=== PATIENT | male | born 2000 | race Caucasian/White ===

== ENCOUNTER 2020-05-02 06:55 | Emergency (ER) | payer OTHER ==
[2020-05-02] MEDS ORDERED: HYDROmorphone 0.5 MG/0.5 ML SYRINGE IVP STA (07:34)
[2020-05-02] MEDS ORDERED: SODIUM CHLORIDE 0.9% 500 ML 500 ML IV STA (07:34)
[2020-05-02 07:58] LABS: Basophils # (A) 0.1 k/uL (0-0.2); Basophils % (A) 1 %; Eosinophils # (A) 0.2 k/uL (0-0.7); Eosinophils % (A) 2 %; HCT 45.4 % (39.0-53.0); HGB 15.4 gm/dL (13.0-17.5); Lymphocytes # (A) 1.3 k/uL (1.0-4.8); Lymphocytes % (A) 11 %; MCH 30.3 pg (25.0-35.0); MCHC 33.8 g/dL (31.0-37.0); MCV 89.6 fL (80.0-100.0); Mean Platelet Volume 7.3; Monocytes # (A) 0.9 k/uL (0-1.0); Monocytes % (A) 7 %; Neutrophils # (A) 9.7 k/uL (1.3-7.7); Neutrophils % (A) 79 %; Platelet Count 250 k/uL (150-450); RBC 5.07 m/uL (4.30-5.90); RDW 13.3 % (11.5-15.5); WBC 12.3 k/uL (3.8-10.6)
--- NOTE | 2020-05-02 07:58 | ED ---
General Adult HPI - General Chief complaint: Abdominal Pain Stated complaint: LT flank pain Time Seen by Provider: 05/02/20 07:00 Source: patient, RN notes reviewed, old records reviewed Mode of arrival: ambulatory Limitations: no limitations - History of Present Illness Initial comments: This is a 20-year-old male who presents emergency Department complaining of left upper quadrant abdominal pain. Patient states started 3 days ago and got progressively worse per patient states it hurts so bad now to move or take a deep breath that it almost makes me I'll allow. Patient denies any nausea vomiting diarrhea. Patient denies any similar symptoms in the past per patient denies any trauma. Patient denies any fevers or chills per patient denies any chest pain difficulty breathing shortness of breath. Patient denies any back pain. Patient denies any dysuria hematuria urinary frequency. - Related Data Home Medications Medication Instructions Recorded Confirmed Acetaminophen Tab [Tylenol Tab] 1,000 mg PO Q6HR PRN 05/02/20 05/02/20 Fexofenadine HCl [Nimisha Allergy] 180 mg PO DAILY 05/02/20 05/02/20 Previous Rx's Medication Instructions Recorded Azithromycin [Zithromax Tri-Mustapha] 500 mg PO DAILY #3 tab 05/02/20 Ibuprofen [Motrin] 600 mg PO Q6HR PRN #20 tab 05/02/20 Allergies Allergy/AdvReac Type Severity Reaction Status Date / Time No Known Allergies Allergy Verified 05/02/20 08:51 Review of Systems ROS Statement: Those systems with pertinent positive or pertinent negative responses have been documented in the HPI. ROS Other: All systems not noted in ROS Statement are negative. Past Medical History Past Medical History: No Reported History History of Any Multi-Drug Resistant Organisms: None Reported Past Surgical History: No Surgical Hx Reported Past Psychological History: No Psychological Hx Reported Smoking Status: Current every day smoker Past Alcohol Use History: None Reported Past Drug Use History: Marijuana General Exam - General Exam Comments Initial Comments: GENERAL: Patient is well-developed and well-nourished. Patient is nontoxic and well- hydrated and is in mild distress. ENT: Neck is soft and supple. No significant lymphadenopathy is noted. Oropharynx is clear. Moist mucous membranes. Neck has full range of motion without eliciting any pain. EYES: The sclera were anicteric and conjunctiva were pink and moist. Extraocular movements were intact and pupils were equal round and reactive to light. Eyelids were unremarkable. PULMONARY: Unlabored respirations. Good breath sounds bilaterally. No audible rales rhonchi or wheezing was noted. CARDIOVASCULAR: There is a regular rate and rhythm without any murmurs gallops or rubs. ABDOMEN: Patient left sided abdominal pain on palpation. Patient has some guarding SKIN: Skin is clear with no lesions or rashes and otherwise unremarkable. NEUROLOGIC: Patient is alert and oriented x3. Cranial nerves II through XII are grossly intact. Motor and sensory are also intact. Normal speech, volume and content. Symmetrical smile. MUSCULOSKELETAL: Normal extremities with adequate strength and full range of motion. LYMPHATICS: No significant lymphadenopathy is noted PSYCHIATRIC: Normal psychiatric evaluation. Limitations: no limitations Course Vital Signs 05/02/20 07:13 Temperature 98.9 F Pulse Rate 77 Respiratory 18 Rate Blood Pressure 107/70 O2 Sat by Pulse 99 Oximetry Medical Decision Making - Medical Decision Making EKG shows normal sinus rhythm at 64 bpm NJ interval 122 QRS is 86 QT interval 42 QTC is 414. Patient's EKG shows no ST segment elevation or depression. ct abd/pelvis shows splenomegaly and left lower lobe Pneumonia She was given 2 g of Rocephin in the emergency department. Patient was also given Toradol as well. Patient feeling considerably better. - Lab Data Result diagrams: 05/02/20 07:42 05/02/20 07:42 Lab Results 05/02/20 05/02/20 05/02/20 Range/Units 07:42 07:42 07:42 WBC 12.3 H (3.8-10.6) k/uL RBC 5.07 (4.30-5.90) m/uL Hgb 15.4 (13.0-17.5) gm/dL Hct 45.4 (39.0-53.0) % MCV 89.6 (80.0-100.0) fL MCH 30.3 (25.0-35.0) pg MCHC 33.8 (31.0-37.0) g/dL RDW 13.3 (11.5-15.5) % Plt Count 250 (150-450) k/uL Neutrophils % 79 % Lymphocytes % 11 % Monocytes % 7 % Eosinophils % 2 % Basophils % 1 % Neutrophils # 9.7 H (1.3-7.7) k/uL Lymphocytes # 1.3 (1.0-4.8) k/uL Monocytes # 0.9 (0-1.0) k/uL Eosinophils # 0.2 (0-0.7) k/uL Basophils # 0.1 (0-0.2) k/uL Sodium 140 (137-145) mmol/L Potassium 4.4 (3.5-5.1) mmol/L Chloride 102 (98-107) mmol/L Carbon Dioxide 31 H (22-30) mmol/L Anion Gap 7 mmol/L BUN 9 (9-20) mg/dL Creatinine 0.82 (0.66-1.25) mg/dL Est GFR (CKD-EPI)AfAm >90 (>60 ml/min/1.73 sqM) Est GFR (CKD-EPI)NonAf >90 (>60 ml/min/1.73 sqM) Glucose 98 (74-99) mg/dL Calcium 9.9 (8.4-10.2) mg/dL Total Bilirubin 1.4 H (0.2-1.3) mg/dL AST 16 L (17-59) U/L ALT 8 (4-49) U/L Alkaline Phosphatase 58 (38-126) U/L Total Protein 7.3 (6.3-8.2) g/dL Albumin 4.5 (3.5-5.0) g/dL Amylase 41 (30-110) U/L Lipase 35 (23-300) U/L Urine Color Yellow Urine Appearance Clear (Clear) Urine pH 6.5 (5.0-8.0) Ur Specific [place] 1.017 (1.001-1.035) Urine Protein Trace H (Negative) Urine Glucose (UA) Negative (Negative) Urine Ketones Negative (Negative) Urine Blood Negative (Negative) Urine Nitrite Negative (Negative) Urine Bilirubin Negative (Negative) Urine Urobilinogen <2.0 (<2.0) mg/dL Ur Leukocyte Esterase Negative (Negative) Heterophile Antibody (Negative) 05/02/20 Range/Units 07:42 WBC (3.8-10.6) k/uL RBC (4.30-5.90) m/uL Hgb (13.0-17.5) gm/dL Hct (39.0-53.0) % MCV (80.0-100.0) fL MCH (25.0-35.0) pg MCHC (31.0-37.0) g/dL RDW (11.5-15.5) % Plt Count (150-450) k/uL Neutrophils % % Lymphocytes % % Monocytes % % Eosinophils % % Basophils % % Neutrophils # (1.3-7.7) k/uL Lymphocytes # (1.0-4.8) k/uL Monocytes # (0-1.0) k/uL Eosinophils # (0-0.7) k/uL Basophils # (0-0.2) k/uL Sodium (137-145) mmol/L Potassium (3.5-5.1) mmol/L Chloride (98-107) mmol/L Carbon Dioxide (22-30) mmol/L Anion Gap mmol/L BUN (9-20) mg/dL Creatinine (0.66-1.25) mg/dL Est GFR (CKD-EPI)AfAm (>60 ml/min/1.73 sqM) Est GFR (CKD-EPI)NonAf (>60 ml/min/1.73 sqM) Glucose (74-99) mg/dL Calcium (8.4-10.2) mg/dL Total Bilirubin (0.2-1.3) mg/dL AST (17-59) U/L ALT (4-49) U/L Alkaline Phosphatase (38-126) U/L Total Protein (6.3-8.2) g/dL Albumin (3.5-5.0) g/dL Amylase (30-110) U/L Lipase (23-300) U/L Urine Color Urine Appearance (Clear) Urine pH (5.0-8.0) Ur Specific [place] (1.001-1.035) Urine Protein (Negative) Urine Glucose (UA) (Negative) Urine Ketones (Negative) Urine Blood (Negative) Urine Nitrite (Negative) Urine Bilirubin (Negative) Urine Urobilinogen (<2.0) mg/dL Ur Leukocyte Esterase (Negative) Heterophile Antibody Negative (Negative) Disposition Clinical Impression: Splenomegaly, Pneumonia Disposition: HOME SELF-CARE Condition: Good Instructions (If sedation given, give patient instructions): Community Acquired Pneumonia (ED) Prescriptions: Ibuprofen [Motrin] 600 mg PO Q6HR PRN #20 tab PRN Reason: For pain Azithromycin [Zithromax Tri-Mustapha] 500 mg PO DAILY #3 tab Is patient prescribed a controlled substance at d/c from ED?: No Referrals: None,Stated [Primary Care Provider] - 1-2 days Time of Disposition: 09:33
[2020-05-02 08:04] LABS: ALT 8 U/L (4-49); AST 16 U/L (17-59); African American GFR (CKD) >90 (>60 ml/min/1.73 sqM); Albumin 4.5 g/dL (3.5-5.0); Alkaline Phosphatase 58 U/L (38-126); Amylase 41 U/L (30-110); Anion Gap 7 mmol/L; Appearance,Urine Clear (Clear); Bilirubin,Urine Negative (Negative); Blood Urea Nitrogen 9 mg/dL (9-20); Blood,Urine Negative (Negative); Calcium 9.9 mg/dL (8.4-10.2); Carbon Dioxide 31 mmol/L (22-30); Chloride 102 mmol/L (98-107); Color,Urine Yellow; Glucose 98 mg/dL (74-99); Glucose,Urine (UA) Negative (Negative); Ketones,Urine Negative (Negative); Leukocyte Esterase,Urine Negative (Negative); Nitrite,Urine Negative (Negative); Non-African American GFR(CKD) >90 (>60 ml/min/1.73 sqM); PH, Urine 6.5 (5.0-8.0); Potassium 4.4 mmol/L (3.5-5.1); Protein,Urine Trace (Negative); Sodium 140 mmol/L (137-145); Specific Gravity,Urine 1.017 (1.001-1.035); Total Bilirubin 1.4 mg/dL (0.2-1.3); Total Protein 7.3 g/dL (6.3-8.2); Urobilinogen,Urine <2.0 mg/dL (<2.0)
--- NOTE | 2020-05-02 08:30 | CT ---
EXAMINATION TYPE: CT abdomen pelvis w con DATE OF EXAM: 05/02/2020 COMPARISON: None. HISTORY: Left upper quadrant abdominal pain. CT DLP: 720.8 mGycm, Automated Exposure Control for Dose Reduction was Utilized. CONTRAST: CT scan of the abdomen and pelvis is performed without oral but with IV Contrast, patient injected wi th 100 mL of Isovue 300. FINDINGS: LUNG BASES: Focal peripheral consolidation/atelectasis axial image 3. Correlate clinically. Additiona l linear atelectasis or infiltrate left lung base just above the diaphragm. LIVER/GB: No significant abnormality is appreciated. PANCREAS: No significant abnormality is seen. SPLEEN: Splenomegaly is present measuring 15.2 cm long axis coronal image 50 and may warrant further nonemergent clinical workup. ADRENALS: No significant abnormality is seen. KIDNEYS: Symmetric respiratory uptake and excretion without hydronephrosis seen bilaterally. BOWEL: Slightly suboptimal evaluation of bowel without enteric contrast. Stomach poorly distended and thus suboptimally evaluated. No suspicious small or large bowel dilatation. Moderate prominence of f ecal material in the right colon. Normal-appearing appendix extending from cecum. PROSTATE/SEMINAL VESICLES: No gross abnormality seen. LYMPH NODES: No greater than 1cm abdominal or pelvic lymph nodes are appreciated. OSSEOUS STRUCTURES: No significant abnormality is seen. OTHER: No significant additional abnormality is seen. IMPRESSION: 1. Asymmetric focal left basilar atelectasis and/or acute infiltrate, correlate clinically for develo ping basilar pneumonia which may be accounting for patient's symptoms. 2. Splenomegaly is present which may warrant further nonemergent clinical workup.
[2020-05-02] MEDS ORDERED: cefTRIAXone IN SWFI 1,000 MG/10 ML SYRINGE IVP STA ×2 (08:45→08:46)
[2020-05-02] MEDS ORDERED: KETOROLAC 15 MG/ML 1 ML VIAL IVP STA (08:46)
--- NOTE | 2020-05-02 08:59 | XR ---
EXAMINATION TYPE: XR chest 2V DATE OF EXAM: 05/02/2020 COMPARISON: NONE HISTORY: Chest pain TECHNIQUE: Frontal and lateral views of the chest are obtained. FINDINGS: There is no focal air space opacity. No evidence for pneumothorax. No pleural effusion. The cardiac silhouette size is within normal limits. The osseous structures are grossly intact. IMPRESSION: 1. No acute cardiopulmonary process.
[2020-05-02 09:46] VITALS: BP 104/72; PULSE 60; RESP 16; TEMP 98.6
== END 2020-05-02 09:46 | disposition home or self-care (01) ==
LOC: EC 06:55
DX: R16.1 Splenomegaly, not elsewhere classified (principal); R10.12 Left upper quadrant pain; J18.9 Pneumonia, unspecified organism; F17.200 Nicotine dependence, unspecified, uncomplicated
CPT/HCPCS: 36415; 71046; 74177; 80053; 81003; 82150; 83690; 85025; 86308; 96361; 96374; 96375; 99285

== ENCOUNTER 2024-01-31 21:44 | Inpatient (IN) | payer OTHER ==
--- NOTE | 2024-01-31 22:23 | ED ---
General Adult HPI - General Chief complaint: Extremity Injury, Lower Stated complaint: L Hip Pain-Fall Time Seen by Provider: 01/31/24 21:55 Source: patient Mode of arrival: wheelchair Limitations: no limitations - History of Present Illness Initial comments: Dictation was produced using Airtime dictation software. please excuse any grammatical, word or spelling errors. Chief Complaint: 24-year-old male presents to the emergency department left hip pain and left ankle pain History of Present Illness: Patient 24-year-old male 3 days ago he was wrestling with a friend/family member. He states that he was tackled in fell backwards. He had his phone and his left back pocket. He states he landed awkwardly on his glutes but since then has been having significant spasms to the left hip. Patient [place] any fever. Noticed that there was some swelling to his left ankle area. Denies any injury to the left ankle. No bruising noted. Patient has be en ambulating with crutches. The ROS documented in this emergency department record has been reviewed and confirmed by me. Those systems with pertinent positive or negative responses have been documented in the HPI. All other systems are other negative and/or noncontributory. - Related Data Home Medications Medication Instructions Recorded Confirmed Acetaminophen Tab [Tylenol Tab] 1,000 mg PO Q6HR PRN 05/02/20 05/02/20 Fexofenadine HCl [Nimisha Allergy] 180 mg PO DAILY 05/02/20 05/02/20 Previous Rx's Medication Instructions Recorded Azithromycin [Zithromax Tri-Mustapha] 500 mg PO DAILY #3 tab 05/02/20 Ibuprofen [Motrin] 600 mg PO Q6HR PRN #20 tab 05/02/20 Allergies Allergy/AdvReac Type Severity Reaction Status Date / Time No Known Allergies Allergy Verified 01/31/24 21:50 Review of Systems ROS Statement: Those systems with pertinent positive or pertinent negative responses have been documented in the HPI. ROS Other: All systems not noted in ROS Statement are negative. Past Medical History Past Medical History: No Reported History History of Any Multi-Drug Resistant Organisms: None Reported Past Surgical History: No Surgical Hx Reported Past Psychological History: No Psychological Hx Reported Smoking Status: Current every day smoker, Vaper Past Alcohol Use History: Rare Past Drug Use History: Marijuana General Exam - General Exam Comments Initial Comments: PHYSICAL EXAM: General Impression: Alert and oriented x3, not in acute distress HEENT: Normocephalic atraumatic, extra-ocular movements intact, pupils equal and reactive to light bilaterally, mucous membranes moist. Cardiovascular: Heart regular rate and rhythm Chest: Able to complete full sentences, no retractions, no tachypnea Abdomen: abdomen soft, non-tender, non-distended, no organomegaly Musculoskeletal: Pulses present and equal in all extremities, no peripheral edema Extremity: Palpatory tenderness to the left hip, appreciable swelling to the left ankle and left foot Motor: no focal deficits noted Neurological: CN II-XII grossly intact, no focal motor or sensory deficits noted Skin: Intact with no visualized rashes Psych: Normal affect and mood Limitations: no limitations Course Vital Signs 01/31/24 01/31/24 21:45 23:05 Temperature 98.1 F Pulse Rate 66 74 Respiratory 16 18 Rate Blood Pressure 155/75 122/80 O2 Sat by Pulse 98 97 Oximetry Medical Decision Making - Medical Decision Making Was pt. sent in by a medical professional or institution ([facility], [facility], urgent care, hospital, or retirement...) When possible be specific @ -No Did you speak to anyone other than the patient for history (EMS, parent, family, police, friend...)? What history was obtained from this source @ -No Did you review nursing and triage notes (agree or disagree)? Why? @ -I reviewed and agree with nursing and triage notes Were old charts reviewed (outside hosp., previous admission, EMS record, old EKG, old radiological studies, urgent care reports/EKG's, retirement records)? Report findings @ -No old charts were reviewed Differential Diagnosis (chest pain, altered mental status, abdominal pain women, abdominal pain men, vaginal bleeding, musculoskeletal, weakness, fever, dyspnea, syncope, headache, dizziness, GI bleed, back pain, seizure, CVA, palpatations, mental health)? @ -Fracture, hip strain, ankle fracture, ankle sprain EKG interpreted by me (3pts min.). @ -None done X-rays interpreted by me (1pt min.). @ -Hip x-ray shows trochanteric fracture CT interpreted by me (1pt min.). @ -None done U/S interpreted by me (1pt. min.). @ -None done What testing was considered but not performed or refused? (CT, X-rays, U/S, labs)? Why? @ -None What meds were considered but not given or refused? Why? @ -None Was smoking cessation discussed for >3mins.? @ -No Were there social determinants of health that impacted care today? How? (Homelessness, low income, unemployed, alcoholism, drug addiction, transportation, low edu. Level, literacy, decrease access to med. care, halfway, rehab)? @ -No Was there de-escalation of care discussed even if they declined (Discuss DNR or withdrawal of care, Hospice)? DNR status @ -No What co-morbidities impacted this encounter? (DM, HTN, Smoking, COPD, CAD, Cancer, CVA, ARF, Chemo, Hep., AIDS, mental health diagnosis, sleep apnea, morbid obesity)? @ -None Was patient admitted / discharged? Hospital course, mention meds given and route, prescriptions, significant lab abnormalities, going to OR and other pertinent info. @ -24-year-old male with left hip fracture. Vital signs are stable. X-ray shows intertrochanteric left hip fracture. Patient with morphine will be admitted to orthopedic surgery for further management Did you discuss the management of the patient with other professionals (professionals i.e. , PA, [facility], lab, RT, psych nurse, social services assistant, blindmaker, teacher, accounts officer, case managers)? Give summary @ -Case discussed with orthopedic surgery for admission Was critical care preformed (if so, how long)? @ -No Undiagnosed new problem with uncertain prognosis? @ -No Drug Therapy requiring intensive monitoring for toxicity (Heparin, Nitro, Insulin, Cardizem)? @ -No Were any procedures done? @ -No Diagnosis/symptom? Acute, or Chronic, or Acute on Chronic? Uncomplicated (without systemic symptoms) or Complicated (systemic symptoms)? @ -Acute hip fracture Side effects of treatment? @ -No Exacerbation, Progression, or Severe Exacerbation? @ -No Poses a threat to life or bodily function? How? (Chest pain, [place], [place], pneumonia, PE, COPD, DKA, ARF, appy, cholecystitis, CVA, Diverticulitis, Homicidal, Suicidal, threat to staff... and all critical care pts) @ -yes Disposition Clinical Impression: Hip fracture Disposition: ADMITTED IP TO THIS HOSP Condition: Fair Referrals: None,Stated [Primary Care Provider] - 1-2 days Decision Time: 23:16
--- NOTE | 2024-01-31 22:58 | XR ---
EXAM: XR Left Ankle Complete, 3 or More Views CLINICAL HISTORY: Pain, spasms TECHNIQUE: Frontal, lateral and oblique views of the left ankle. COMPARISON: No relevant prior studies available. FINDINGS: Bones/joints: Unremarkable. No acute fracture. No dislocation. Soft tissues: Soft tissue fullness noted overlying the lateral malleolus and questionably the anterior ankle. There is also a suggestion of fat stranding in the distal calf. No radiopaque foreign body or subcutaneous emphysema. IMPRESSION: Soft tissue fullness noted overlying the lateral malleolus and questionably the anterior ankle. There is also a suggestion of fat stranding in the distal calf. No radiopaque foreign body or subcutaneous emphysema. No acute osseous traumatic injury or abnormal alignment involving the left ankle.
--- NOTE | 2024-01-31 23:01 | XR ---
EXAM: XR Left Hip With Pelvis When Performed, 2 or 3 Views CLINICAL HISTORY: ITS.REASON XR Reason: pain, spasms TECHNIQUE: Two or three views of the left hip with pelvis when performed. COMPARISON: No relevant prior studies available. FINDINGS: Bones/joints: Mildly displaced fracture involving the left intertrochanteric region with mildly displaced avulsion component of the lesser trochanter and an oblique nondisplaced fracture component extending to the proximal left femoral metadiaphysis laterally. The left femoral head remains in the acetabulum. The pelvic bones are intact without acute osseous traumatic injury. No dislocation. Soft tissues: No significant overlying acute traumatic soft tissue abnormality. No radiopaque foreign body or subcutaneous emphysema. IMPRESSION: 1. Mildly displaced fracture involving the left intertrochanteric region with mildly displaced avulsion component of the lesser trochanter and an oblique nondisplaced fracture component extending to the proximal left femoral metadiaphysis laterally. The left femoral head remains in the acetabulum. 2. The pelvic bones are intact without acute osseous traumatic injury.
[2024-01-31] MEDS: MORPHINE SULFATE 4 MG/ML SYRINGE IM STA (23:03)
[2024-01-31] MEDS: MORPHINE SULFATE 4 MG/ML SYRINGE IVP STA (23:06)
[2024-01-31] MEDS ORDERED: NALOXONE 0.4 MG/ML 1 ML VIAL IV PRN (23:13)
[2024-01-31] MEDS ORDERED: ACETAMINOPHEN TAB 325 MG TAB PO PRN (23:13)
[2024-01-31] MEDS: SODIUM CHLORIDE 0.9% 1,000 ML IV SCH (23:18)
[2024-01-31 23:23] LABS: African American GFR (CKD) >90 (>60 ml/min/1.73 sqM); Anion Gap 6 mmol/L; Blood Urea Nitrogen 14 mg/dL (9-20); Calcium 9.4 mg/dL (8.4-10.2); Carbon Dioxide 29 mmol/L (22-30); Chloride 108 mmol/L (98-107); Glucose 89 mg/dL (74-99); Non-African American GFR(CKD) >90 (>60 ml/min/1.73 sqM); Potassium 3.9 mmol/L (3.5-5.1); Sodium 143 mmol/L (137-145)
[2024-01-31 23:25] LABS: INR 1.1 (<1.2); Partial Thromboplastin Time 24.8 sec (22.0-30.0); Prothrombin Time 11.7 sec (10.0-12.5)
[2024-01-31 23:28] LABS: Basophils # (A) 0.1 k/uL (0-0.2); Basophils % (A) 1 %; Eosinophils # (A) 0.4 k/uL (0-0.7); Eosinophils % (A) 7 %; HCT 42.1 % (39.0-53.0); HGB 14.2 gm/dL (13.0-17.5); Lymphocytes # (A) 1.6 k/uL (1.0-4.8); Lymphocytes % (A) 29 %; MCHC 33.7 g/dL (31.0-37.0); MCV 95.1 fL (80.0-100.0); Mean Platelet Volume 8.1; Monocytes # (A) 0.4 k/uL (0-1.0); Monocytes % (A) 7 %; Neutrophils # (A) 2.9 k/uL (1.3-7.7); Neutrophils % (A) 53 %; Platelet Count 155 k/uL (150-450); RBC 4.43 m/uL (4.30-5.90); RDW 12.5 % (11.5-15.5); WBC 5.4 k/uL (3.8-10.6)
--- NOTE | 2024-02-01 | CT ---
EXAM: CT Left Lower Extremity Without Intravenous Contrast, Hip CLINICAL HISTORY: Left hip fracture TECHNIQUE: Axial computed tomography images of the left hip without intravenous contrast. CTDI is 9.6 mGy and DLP is 359.6 mGy-cm. This CT exam was performed using one or more of the following dose reduction techniques: automated exposure control, adjustment of the mA and/or kV according to patient size, and/or use of iterative reconstruction technique. COMPARISON: Plain radiographs performed earlier FINDINGS: Bones/joints: There is a left intertrochanteric femur fracture with minimal subtle impaction and involvement of both the greater and lesser trochanters. There is oblique extension of the fracture extending posteriorly and laterally, approximately 3.5 cm distal to the inferior margin of the lesser trochanter. The left femoral neck and femoral head are intact. The included pelvic bones are unremarkable. No dislocation. Soft tissues: Fat stranding and edema noted about the muscle bundles of the proximal thigh. No well-defined hematoma. Minimal subcutaneous fat stranding noted laterally and posterolaterally. No subcutaneous emphysema or radiopaque foreign body. IMPRESSION: There is a left intertrochanteric femur fracture with minimal subtle impaction and involvement of both the greater and lesser trochanters. There is oblique extension of the fracture extending posteriorly and laterally, approximately 3.5 cm distal to the inferior margin of the lesser trochanter. The left femoral neck and femoral head are intact.
[2024-02-01] MEDS: MORPHINE SULFATE 4 MG/ML SYRINGE IV PRN (06:14)
[2024-02-01] MEDS: NICOTINE 14MG/24HR PATCH TRANSDERM SCH (11:43)
--- NOTE | 2024-02-01 12:02 | P.HPOR ---
History of Present Illness H&P Date: 02/01/24 This is a 24-year-old male who is admitted for a left hip fracture. Patient is seen and evaluated at bedside today in the emergency room. Patient states that 5 days ago he was wrestling with friends and fell from ground level onto the left hip. Patient states that he was in significant pain and has been using crutches to stay off of the left leg. Patient states that his pain continued to worsen so he presented to the emergency room on 01/31/2024 where x-rays revealed a left intertrochanteric hip fracture. Patient states that he is an every day smoker, but he denies any significant past medical history. Patient states that he lives alone in a house and has family nearby. Patient denies any fever/chills, chest pain, shortness breath, abdominal pain, numbness, weakness or tingling. Review of Systems See HPI. Past Medical History Past Medical History: No Reported History History of Any Multi-Drug Resistant Organisms: None Reported Past Surgical History: No Surgical Hx Reported Past Psychological History: No Psychological Hx Reported Smoking Status: Current every day smoker, Vaper Past Alcohol Use History: Rare Past Drug Use History: Marijuana Medications and Allergies Home Medications Medication Instructions Recorded Confirmed Type No Known Home Medications 02/01/24 02/01/24 History Allergies Allergy/AdvReac Type Severity Reaction Status Date / Time No Known Allergies Allergy Verified 02/01/24 07:32 Physical Examination On exam patient is resting comfortably in bed in no acute distress. Patient is alert and oriented 3. Head is normocephalic and atraumatic. Patient moves bilateral upper extremities and right lower extremity freely and without pain. Left lower extremity: Patient has pain with any attempt at motion of the left leg. Calf is soft and nontender to palpation. There is mild swelling of the left thigh and lower leg. Skin is intact. There is no erythema or ecchymosis. Posterior tibial pulses 2+. The left lower extremity is warm and well-perfused. Patient does have difficulty with dorsiflexion of the left foot and great toe. Patient has some stiffness of the left ankle with range of motion. Sensation intact. Results X-rays of the left hip and pelvis dated 01/31/2024 reveal an intertrochanteric fracture of the left femur. A CT report of the left hip shows: There is a left intertrochanteric femur fracture with minimal subtle impaction involvement of both the greater and les ser trochanters. There is oblique extension of the fracture extending posteriorly and laterally approximately 3.5 cm distal to the inferior margin of the lesser trochanter. The left femoral neck and femoral head are intact. - Labs Labs: Abnormal Lab Results - Last 24 Hours (Table) 01/31/24 Range/Units 22:40 Chloride 108 H (98-107) mmol/L H & H 01/31/24 Range/Units 22:40 Hgb 14.2 (13.0-17.5) gm/dL Hct 42.1 (39.0-53.0) % Coagulation 01/31/24 Range/Units 22:40 INR 1.1 (<1.2) Result Diagrams: 01/31/24 22:40 01/31/24 22:40 Assessment and Plan (1) Intertrochanteric fracture of left hip Current Visit: Yes Status: Acute Code(s): S72.142A - DISPLACED INTERTROCHANTERIC FRACTURE OF LEFT FEMUR, INIT SNOMED Code(s): 627497669 (2) Fall Current Visit: Yes Status: Acute Code(s): W19.XXXA - UNSPECIFIED FALL, INITIAL ENCOUNTER SNOMED Code(s): 9956671 Plan: 1. Imaging is reviewed and surgical fixation of the left intertrochanteric hip fracture is scheduled for 02/02/[address] Savage. Patient questions and concerns are addressed at bedside today. Patient is to be NPO after midnight. Continue bedrest and pain control.
[2024-02-01 14:22] VITALS: BMI 18.8
--- NOTE | 2024-02-02 01:57 | XR ---
EXAM: XR Left Femur, 2 Views CLINICAL HISTORY: ITS.REASON XR Reason: known proximal femur fracture TECHNIQUE: Frontal and lateral views of the left femur. COMPARISON: CT scan from January 31, 2024 FINDINGS: Bones/joints: Unremarkable. No acute fracture or subluxation. Soft tissues: Unremarkable. IMPRESSION: No acute fracture or subluxation in the [id number] (only the mid and distal femur were submitted). CT scan from January 31, 2024 demonstrates a fracture in the intertrochanteric region.
[2024-02-02] MEDS ORDERED: PROPOFOL 10 MG/ML 20 ML VIAL IV ONE (08:00)
[2024-02-02] MEDS ORDERED: TRANEXAMIC 1,000 MG/100ML-NACL PREMIX BAG ONE (08:00)
[2024-02-02] MEDS ORDERED: ROCURONIUM 10 MG/ML (5 ML VIAL) IV ONE (08:00)
[2024-02-02] MEDS ORDERED: LIDOCAINE 1% INJ 10MG/ML (20 ML MDV) ONE (08:00)
[2024-02-02] MEDS ORDERED: ONDANSETRON 4 MG/2 ML VIAL ONE (08:00)
[2024-02-02] MEDS ORDERED: ceFAZolin 1 GM/50 ML BAG (PMX) ONE (08:00)
[2024-02-02] MEDS ORDERED: fentaNYL (PF) 50 MCG/ML 2 ML AMP ONE (08:00)
[2024-02-02] MEDS ORDERED: PHENYLEPHRINE-0.9% NACL SYG 1,000 MCG/10 ML SYRINGE ONE (08:00)
[2024-02-02] MEDS ORDERED: DEXAMETHASONE SOD PHOSPHATE 4 MG/ML 1 ML VIAL ONE (08:00)
[2024-02-02] MEDS ORDERED: ePHEDrine 50 MG/ML 1 ML VIAL ONE (08:00)
[2024-02-02] MEDS ORDERED: MIDAZOLAM 2 MG/2 ML VIAL ONE (08:00)
[2024-02-02] MEDS ORDERED: SUCCINYLCHOLINE CHLORIDE 200 MG/10 ML VIAL IV ONE (08:00)
[2024-02-02] MEDS ORDERED: NEOSTIGMINE 1 MG/ML 10 ML VIAL ONE (08:00)
[2024-02-02] MEDS ORDERED: GLYCOPYRROLATE 0.2 MG/ML 2 ML VIAL ONE (08:00)
[2024-02-02] MEDS: IV FLUID CONTINUATION 200 ML IV ONE (08:04)
[2024-02-02] MEDS: SODIUM CHLORIDE 0.9% 100 ML with ceFAZolin 2,000 MG IV ONE (08:29)
[2024-02-02] MEDS: IV FLUID CONTINUATION 1,000 ML IV ONE ×2 (08:43→11:10)
[2024-02-02] MEDS ORDERED: NALOXONE 0.4 MG/ML 1 ML VIAL IV PRN ×2 (10:09→10:11)
--- NOTE | 2024-02-02 10:09 | P.OP ---
Date of Procedure: 02/02/24 Preoperative Diagnosis: 1. left intertrochanteric proximal femur fracture with subtrochanteric extension 2. current every day cigarette smoker Postoperative Diagnosis: same Procedure(s) Performed: Operative fixation of left subtrochanteric femur fracture with long intramedullary reconstruction nail Implants: Daria T2 Recon nail 400 mm x 10 mm Anesthesia: GETA Surgeon: Edouard Savage Cleaning Maid #1: Celso Medellin Estimated Blood Loss (ml): 200 IV fluids (ml): 800 Urine output (ml): 0 Pathology: other (Reamings sent for pathology) Condition: stable Disposition: PACU Indications for Procedure: the patient is a 24-year-old male with a medical history significant for being a current every day cigarette smoker who presented to the ER this past Tuesday with left hip pain. There is a reported forefoot fall onto his left hip but the mechanism of injury is somewhat vague. He was admitted under the care of my partner who was ammonia print operator. Due to the holiday, I took over care of this morning. I met with the patient and his parents to discuss treatment options. I recommended a long intramedullary recon nail. The patient was informed that he is at a higher risk of having a complication due to his smoking. I strongly encouraged him to quit smoking. We discussed the potential risks and complications of this surgical procedure including but certainly not limited to risks from anesthesia, superficial infection, deep infection, fracture nonunion, fracture malunion, hardware failure including broken hardware, varus collapse with lag screw cut out of the femoral head, progression of hip arthritis, limb length discrepancy, symptomatic hardware, need for further surgery including hardware removal and conversion to arthroplasty, DVT, PE, acute coronary event, pressure ulcers, urinary tract infection, failure to thrive, an inability to regain preinjury level of function, and possibly . The patient and their family understand these potential complications and also awknowledge that other less common complications are possible. They provided both their verbal and written consent to go forward with operative fixation of their hip fracture with an intramedullary hip screw. Description of Procedure: The patient was identified in preoperative holding and the correct operative extremity was marked with my initials. I reviewed the consent form with the patient and their family and all of their questions were answered. The patient was then brought back to the operating room by anesthesia. Anesthesia, preoperative antibiotics, and tranexamic acid were given by the anesthesia team while on the gurney. Both ankles were padded with webril and boots for the Daisy table were applied. The patient was then carefully transferred onto the Daisy table. A perineal post was immediately placed. The contralateral arm was secured on a well-padded arm romo. The ipsilateral arm was draped across the chest and secured with a pillow, foam, and paper tape to allow access to the proximal femur. Nonsterile drapes were applied to the operative extremity. The height of the table was elevated and the contralateral extremity was dropped towards the floor to facilitate imaging. A timeout was performed identifying the correct patient, operative extremity, and procedure. Fluoroscopy was brought in to assess the fracture. A provisional reduction was performed using longitudinal traction, adduction, and internal rotation. An AP and lateral view were obtained to assess the reduction. The operative extremity was then prepped and draped in the standard sterile fashion. A straight incision was made at the tip of the greater trochanter and extended proximally for 3 cm. Skin and subcutaneous tissues were incised sharply. The underlying fascia was incised in line with the skin incision. An awl was placed just medial to the tip of the greater trochanter on the AP view and colinear with the canal on the lateral view. A 3.2 mm guide pin was then advanced into the proximal femur. The position of the guidepin was verified with fluoroscopy. An opening reamer and soft tissue cannula were placed over the guidepin and used to open the proximal femur to the level of the lesser trochanter. The 3.2 mm guide pin and opening reamer were removed. A long ball- tipped guidewire was placed through the opening in the proximal femur, down the canal to the tip of the patella. The position was verified with fluoroscopy. The guidepin measured just past for 400 mm. I then reamed starting with an 8 mm reamer. A 10 mm reamer generated chatter. I reamed up to an 11.5 mm reamer. A long T2 400x10 mm recon nail was dispensed, hooked up to the targeting arm and I verified that the trochar through the targeting arm lined up with the slots on the nail. The nail was then impacted into the femur until the appropriate depth had been reached. A small stab incision was made over the lateral aspect of the femur using the targeting arm as a reference for the proximal screws. An incision was carried down to the skin and fascia down to the lateral cortex of the femur. The trocar was then placed up to the lateral cortex of the femur and a guidepin was placed in the low center position on the AP view and centered in the femoral head on the lateral view. This measured 95mm. We then set the drill to 100 mm and drill the more proximal screw. The proximal 100mm screw was placed, followed by the more distal proximal screw. The position of the screws were assessed with fluoroscopy. The targeting arm was removed. The set screw was placed proximally and brought fully down. Two distal interlocking screws were placed using the freehand "perfect circles" technique. Final fluoroscopic images were taken showing excellent reduction of the fracture and appropriate position of the implants. All wounds were thoroughly irrigated and closed in layers. Sterile dressings were applied. The drapes were taken down, the patient was transferred off the Daisy table, and was brought to recovery having tolerated the procedure well. Celso Medellin PA-C was required as a skilled assistant spa manager due to the complexity of surgery for patient positioning, draping, retraction, reduction of fracture, placement of hardware, closure of wounds, and application of dressings. PLAN: The patient can weight-bear as tolerated on their operative extremity. 2 doses of postoperative antibiotics. DVT prophylaxis with aspirin 81 mg twice a day starting the day of surgery. Dressing change on postoperative day #2. Discharge planning in process.
[2024-02-02] MEDS ORDERED: MAGNESIUM HYDROXIDE 2,400 MG/30 ML CUP PO PRN (10:11)
[2024-02-02] MEDS ORDERED: HYDROcodone/APAP 10-325MG 1 EACH TAB PO PRN (10:11)
[2024-02-02] MEDS ORDERED: diazePAM 5 MG TAB PO PRN (10:11)
[2024-02-02] MEDS ORDERED: hydrOXYzine pamoate 25 MG CAP PO PRN (10:11)
[2024-02-02] MEDS ORDERED: HYDROmorphone 1 MG/ML 1 ML SYRINGE IVP PRN (10:11)
[2024-02-02] MEDS: HYDROmorphone 0.5 MG/0.5 ML SYRINGE IVP PRN (10:36)
--- NOTE | 2024-02-02 10:37 | FL ---
EXAMINATION TYPE: FL guidance operating room, XR femur LT Intraoperative/procedural fluoroscopic serv ices were provided. Total fluoroscopy time is 2 minutes 31 seconds with a total of 10 submitted image s to PACS. Please see the operative/procedural note for further details. DAP: 2.8086 Gycm2
[2024-02-02] MEDS: MEPERIDINE 50 MG/ML SYRINGE IVP STA (10:45)
[2024-02-02] MEDS: LACTATED RINGERS 1,000 ML IV SCH (12:03)
[2024-02-02] MEDS: HYDROcodone/APAP 5-325MG 1 EACH TAB PO PRN (12:33)
[2024-02-02] MEDS: ONDANSETRON 4 MG/2 ML VIAL IVP PRN (13:45)
[2024-02-02 14:34] LABS: Basophils % (A) 0 %; Eosinophils % (A) 0 %; HCT 35.6 % (39.0-53.0); HGB 12.1 gm/dL (13.0-17.5); Lymphocytes # (A) 0.4 k/uL (1.0-4.8); Lymphocytes % (A) 7 %; MCH 32.5 pg (25.0-35.0); MCHC 34.1 g/dL (31.0-37.0); MCV 95.5 fL (80.0-100.0); Mean Platelet Volume 9.3; Monocytes # (A) 0.2 k/uL (0-1.0); Monocytes % (A) 3 %; Neutrophils # (A) 5.4 k/uL (1.3-7.7); Neutrophils % (A) 88 %; Platelet Count 131 k/uL (150-450); RBC 3.73 m/uL (4.30-5.90); RDW 12.5 % (11.5-15.5); WBC 6.1 k/uL (3.8-10.6)
[2024-02-02] MEDS: SENNOSIDES-DOCUSATE SODIUM 1 EACH TAB PO SCH (21:01)
[2024-02-03 08:56] VITALS: BP 121/61; PULSE 97; RESP 17; TEMP 98.6
--- NOTE | 2024-02-03 10:27 | P.DS ---
Providers Date of admission: 01/31/24 23:14 Attending physician: Edouard Savage Primary care physician: Stated None - Discharge Diagnosis(es) (1) Intertrochanteric fracture of left hip Current Visit: Yes Status: Acute Hospital Course: Patient is a 24-year-old male who presented to the ER for left hip pain on 02/01/2024. Imaging revealed left intertrochanteric proximal femur fracture with subtrochanteric extension. On 02/02/2024 the patient underwent operative fixation of left subtrochanteric femur fracture with long intramedullary reconstruction nail. Patient tolerated the procedure well. Patient was transferred to the floor. On postop day 1 patient worked with physical therapy. Patient has been up with a walker to the bathroom. Patient states that the left hip pain has improved compared to before surgery. On postop day 1 patient was examined, they were sitting in chair during time of exam. Patient was awake, alert and able to answer questions. 3 surgical dressings were in place, intact, and without strikethrough. There is mild generalized swelling in the left thigh. The skin was free of erythema. Patient's femoral nerve function was intact, and patient is able to dorsiflex and plantarflex the ankle and toes. Patient's pain is under control and will be discharged home later today. Assessment: POD#1 Operative fixation of left subtrochanteric femur fracture with long intramedullary reconstruction nail Patient Condition at Discharge: Fair Plan - Discharge Summary Discharge Rx Participant: Yes New Discharge Prescriptions: New Aspirin 81 mg PO BID #60 tab HYDROcodone/APAP 5-325MG [[place] 5-325] 1 - 2 tab PO Q6HR PRN #32 tab PRN Reason: Pain Docusate [Colace] 100 mg PO BID #60 capsule Discharge Medication List Aspirin 81 mg PO BID #60 tab 02/02/24 [Rx] Docusate [Colace] 100 mg PO BID #60 capsule 02/02/24 [Rx] HYDROcodone/APAP 5-325MG [[place] 5-325] 1 - 2 tab PO Q6HR PRN #32 tab 02/02/24 [Rx] Follow up Appointment(s)/Referral(s): None,Stated [Primary Care Provider] - 2 Weeks Edouard Savage MD [Medical Doctor] - 2 Weeks Activity/Diet/Wound Care/Special Instructions: 1. Weight-bear as tolerated on your operative extremity unless instructed otherwise. Use a walker or other assistive device to ambulate. 2. Leave surgical dressing in place. If your dressing becomes saturated with blood, there is drainage, or the dressing becomes loose please contact the office. 3. It is okay to shower with your surgical dressing, but do not submerge in water (no hot tubs, bath's, swimming etc.) 4. Make sure to take her blood clot prevention medication as prescribed (aspirin, Eliquis, Xarelto, and Plavix are commonly prescribed medications for blood clot prevention) 5. While taking [place] or Percocet for pain make sure you're taking a stool softener (Colace) and drink lots of water. 6. Keep all follow-up appointments as scheduled. You will usually be seen in 1-2 weeks following surgery. 7. Please contact the office with any questions or concerns [phone] Discharge/Stand Alone Forms: Area PCPs Discharge Disposition: HOME SELF-CARE
== END 2024-02-03 12:00 | disposition home or self-care (01) | DRG 482 ==
LOC: EC 21:44 → 4SSUR 23:14
PROVIDERS: ADMIT Orthopaedic Surgery; ATTEND Orthopaedic Surgery
PROC: 0QS736Z Reposition Left Upper Femur with Intramedullary Internal Fixation Device, Percutaneous Approach (ICD-10-PCS; principal; 2024-02-02 08:00)
DX: S72.142A Displaced intertrochanteric fracture of left femur, initial encounter for closed fracture (principal); S72.22XA Displaced subtrochanteric fracture of left femur, initial encounter for closed fracture; F17.210 Nicotine dependence, cigarettes, uncomplicated; Z28.310 Unvaccinated for COVID-19; S93.409A Sprain of unspecified ligament of unspecified ankle, initial encounter; Z71.6 Tobacco abuse counseling; W18.30XA Fall on same level, unspecified, initial encounter; Y93.83 Activity, rough housing and horseplay
CPT/HCPCS: 36415; 73502; 80048; 85025; 85610; 85730; 88304; 88311; 96374; 96376; 99285

== ENCOUNTER 2024-02-24 10:57 | Inpatient (IN) | payer OTHER ==
--- NOTE | 2024-02-24 13:00 | ED ---
General Adult HPI - General Chief complaint: Extremity Problem,Nontraumatic Stated complaint: L Leg Blood Clot Time Seen by Provider: 02/24/24 11:43 Source: patient, RN notes reviewed, old records reviewed Mode of arrival: ambulatory Limitations: no limitations - History of Present Illness Initial comments: Is a 24-year-old chest x-ray male who presents emergency department complaining of left leg swelling and pain. Patient had a left subtrochanteric femur fracture repaired on February 02, 2024. Has been progressing well since surgery however has noticed over the last few days to week he started noticing some pain in the posterior left calf which is now progressed to the left thigh. Was sent for ultrasound outpatient which revealed a DVT that extended from the common femoral vein down through the proximal calf veins. It is extensive through the left lower extremity. Presents for further evaluation at this time. Denies any shortness of breath or chest pain. Denies any other acute complaints at this time. Presents for further evaluation at this time. - Related Data Home Medications Medication Instructions Recorded Confirmed No Known Home Medications 02/24/24 02/24/24 Allergies Allergy/AdvReac Type Severity Reaction Status Date / Time No Known Allergies Allergy Verified 02/24/24 12:48 Review of Systems ROS Statement: Those systems with pertinent positive or pertinent negative responses have been documented in the HPI. Review of Systems: CONST: Denies fever EYES: Denies blurry vision ENT: Denies nasal congestion C/V: Denies Chest pain RESP: Denies shortness of breath GI: Denies abdominal pain : Denies dysuria SKIN: Denies rash. MSK: Endorses left lower extremity edema and pain NEURO: Denies headache ROS Other: All systems not noted in ROS Statement are negative. Past Medical History Past Medical History: No Reported History History of Any Multi-Drug Resistant Organisms: None Reported Past Surgical History: Orthopedic Surgery Past Anesthesia/Blood Transfusion Reactions: No Reported Reaction Past Psychological History: No Psychological Hx Reported Smoking Status: Current every day smoker, Vaper Past Alcohol Use History: Rare Past Drug Use History: Marijuana General Exam - General Exam Comments Initial Comments: General: Appears in no acute distress. HEAD: Normal with no signs of head trauma. EYES: EOMI ENT: Hearing grossly intact, normal oropharynx. RESPIRATORY: Clear breath sounds bilaterally. No wheezes, rales, or rhonchi. Hypoxia or respiratory distress. C/V: Regular rate and rhythm. S1 and S2 auscultated, no edema, peripheral pulses 2+ and intact throughout ABD: Abd is soft, nontender, nondistended EXT: Lower extremity edema, some mild tenderness to palpation in the posterior left thigh however no obvious acute pain. Neurovascular intact in the left lower extremity. SKIN: No rashes or lesions observed on exposed skin. NEURO: Alert and oriented x 4. Limitations: no limitations Course Vital Signs 02/24/24 02/24/24 11:07 16:48 Temperature 97.9 F 99.3 F Pulse Rate 77 64 Respiratory 18 18 Rate Blood Pressure 109/66 94/56 O2 Sat by Pulse 97 99 Oximetry Medical Decision Making - Medical Decision Making Was pt. sent in by a medical professional or institution (, PA, GARDEN CENTER MANAGER, urgent care, hospital, or fpc...) When possible be specific @ -Sent from outpatient ultrasound over concern for extensive left lower extremity DVT Did you speak to anyone other than the patient for history (EMS, parent, family, police, friend...)? What history was obtained from this source @ -No Did you review nursing and triage notes (agree or disagree)? Why? @ -I reviewed and agree with nursing and triage notes Were old charts reviewed (outside hosp., previous admission, EMS record, old EKG, old radiological studies, urgent care reports/EKG's, fpc records)? Report findings @ --Reviewed old charts from previous surgical procedure on February [address] Savage. Differential Diagnosis (chest pain, altered mental status, abdominal pain women, abdominal pain men, vaginal bleeding, weakness, fever, dyspnea, syncope, headache, dizziness, GI bleed, back pain, seizure, CVA, palpatations, mental health, musculoskeletal)? @ -DVT, cellulitis, dependent edema. This list is not all inclusive. EKG interpreted by me (3pts min.). @ -None done X-rays interpreted by me (1pt min.). @ -None done CT interpreted by me (1pt min.). @ -None done U/S interpreted by me (1pt. min.). @ -Reviewed ultrasound from outpatient which revealed extensive left lower extremity DVT ranging from the calf veins through to the proximal femoral vein. What testing was considered but not performed or refused? (CT, X-rays, U/S, labs)? Why? @ -None What meds were considered but not given or refused? Why? @ -None Did you discuss the management of the patient with other professionals (professionals i.e. ., PA, GARDEN CENTER MANAGER, lab, RT, psych nurse, social work professor, industrial spraypainter, te acher, sales officer, social work case manager)? Give summary @ - I spoke with [facility], [facility] who accepted the admission. Was smoking cessation discussed for >3mins.? @ -No Was critical care preformed (if so, how long)? @ -No Were there social determinants of health that impacted care today? How? (Homelessness, low income, unemployed, alcoholism, drug addiction, transportation, low edu. Level, literacy, decrease access to med. care, alf, rehab)? @ -No Was there de-escalation of care discussed even if they declined (Discuss DNR or withdrawal of care, Hospice)? DNR status @ -No What co-morbidities impacted this encounter? (DM, HTN, Smoking, COPD, CAD, Cancer, CVA, ARF, Chemo, Hep., AIDS, mental health diagnosis, sleep apnea, morbid obesity)? @ -Recent left femur fracture with surgery Was patient admitted / discharged? Hospital course, mention meds given and route, prescriptions, significant lab abnormalities, going to OR and other pertinent info. @ -Based on patient's presentation and physical exam, patient appears to have a provoked extensive left lower extremity DVT diagnosed on outpatient ultrasound. I did discuss with the patient and we will admit the patient for high-dose IV heparin. He was in agreement this plan. Vascular surgery will be consulted. We will obtain basic labs. No concern for PE at this time as he has no other symptoms other than left leg swelling and some mild pain. Vital signs are within acceptable limits. Patient's laboratory studies returned remarkable for mild anemia of 11.3. No other obvious findings. I spoke with [facility], [facility] who accepted the admission. Undiagnosed new problem with uncertain prognosis? @ -No Drug Therapy requiring intensive monitoring for toxicity (Heparin, Nitro, Insulin, Cardizem)? @ -Heparin Were any procedures done? @ -No Diagnosis/symptom? @ -Left lower extremity DVT Acute, or Chronic, or Acute on Chronic? @ -Acute Uncomplicated (without systemic symptoms) or Complicated (systemic symptoms)? @ -Complicated Side effects of treatment? @ -No Exacerbation, Progression, or Severe Exacerbation? @ -No Poses a threat to life or bodily function? How? (Chest pain, [place], [place], pneumonia, PE, COPD, DKA, ARF, appy, cholecystitis, CVA, Diverticulitis, Homicidal, Suicidal, threat to staff... and all critical care pts) @ - Yes - Lab Data Result diagrams: 02/24/24 12:49 02/24/24 12:49 Lab Results 02/24/24 02/24/24 02/24/24 Range/Units 12:49 12:49 12:49 WBC 7.0 (3.8-10.6) k/uL RBC 3.78 L (4.30-5.90) m/uL Hgb 11.3 L (13.0-17.5) gm/dL Hct 34.9 L (39.0-53.0) % MCV 92.1 (80.0-100.0) fL MCH 29.7 (25.0-35.0) pg MCHC 32.3 (31.0-37.0) g/dL RDW 12.8 (11.5-15.5) % Plt Count 363 D (150-450) k/uL MPV 8.5 Neutrophils % 75 % Lymphocytes % 16 % Monocytes % 6 % Eosinophils % 2 % Basophils % 0 % Neutrophils # 5.2 (1.3-7.7) k/uL Lymphocytes # 1.1 (1.0-4.8) k/uL Monocytes # 0.4 (0-1.0) k/uL Eosinophils # 0.1 (0-0.7) k/uL Basophils # 0.0 (0-0.2) k/uL Hypochromasia Moderate Poikilocytosis Moderate PT 12.2 (10.0-12.5) sec INR 1.1 (<1.2) APTT 26.1 (22.0-30.0) sec Sodium 142 (137-145) mmol/L Potassium 4.2 (3.5-5.1) mmol/L Chloride 106 (98-107) mmol/L Carbon Dioxide 26 (22-30) mmol/L Anion Gap 10 mmol/L BUN 12 (9-20) mg/dL Creatinine 0.53 L (0.66-1.25) mg/dL Est GFR (CKD-EPI)AfAm >90 (>60 ml/min/1.73 sqM) Est GFR (CKD-EPI)NonAf >90 (>60 ml/min/1.73 sqM) Glucose 125 H (74-99) mg/dL Calcium 9.6 (8.4-10.2) mg/dL Total Bilirubin 0.9 (0.2-1.3) mg/dL AST 20 (17-59) U/L ALT 12 (4-49) U/L Alkaline Phosphatase 56 (38-126) U/L Total Protein 6.5 (6.3-8.2) g/dL Albumin 4.1 (3.5-5.0) g/dL Disposition Clinical Impression: Deep vein thrombosis (DVT) of lower extremity Disposition: ADMITTED IP TO THIS HOSP Condition: Stable Time of Disposition: 14:00
[2024-02-24 13:03] LABS: Basophils % (A) 0 %; Eosinophils # (A) 0.1 k/uL (0-0.7); Eosinophils % (A) 2 %; HCT 34.9 % (39.0-53.0); HGB 11.3 gm/dL (13.0-17.5); Hypochromasia Moderate; Lymphocytes # (A) 1.1 k/uL (1.0-4.8); Lymphocytes % (A) 16 %; MCH 29.7 pg (25.0-35.0); MCHC 32.3 g/dL (31.0-37.0); MCV 92.1 fL (80.0-100.0); Mean Platelet Volume 8.5; Monocytes # (A) 0.4 k/uL (0-1.0); Monocytes % (A) 6 %; Neutrophils # (A) 5.2 k/uL (1.3-7.7); Neutrophils % (A) 75 %; Poikilocytosis Moderate; RBC 3.78 m/uL (4.30-5.90); RDW 12.8 % (11.5-15.5)
[2024-02-24 13:07] LABS: Platelet Count 363 k/uL (150-450)
[2024-02-24 13:08] LABS: ALT 12 U/L (4-49); AST 20 U/L (17-59); African American GFR (CKD) >90 (>60 ml/min/1.73 sqM); Albumin 4.1 g/dL (3.5-5.0); Alkaline Phosphatase 56 U/L (38-126); Anion Gap 10 mmol/L; Blood Urea Nitrogen 12 mg/dL (9-20); Calcium 9.6 mg/dL (8.4-10.2); Carbon Dioxide 26 mmol/L (22-30); Chloride 106 mmol/L (98-107); Glucose 125 mg/dL (74-99); Non-African American GFR(CKD) >90 (>60 ml/min/1.73 sqM); Potassium 4.2 mmol/L (3.5-5.1); Sodium 142 mmol/L (137-145); Total Bilirubin 0.9 mg/dL (0.2-1.3); Total Protein 6.5 g/dL (6.3-8.2)
[2024-02-24 13:10] LABS: INR 1.1 (<1.2); Partial Thromboplastin Time 26.1 sec (22.0-30.0); Prothrombin Time 12.2 sec (10.0-12.5)
[2024-02-24] MEDS: HEPARIN SOD,PORK IN 0.45% NACL 25,000 UNIT in 0.45% NACL 1 250ML.BAG IV SCH (13:22)
[2024-02-24] MEDS: HEPARIN SODIUM 1,000 UN/ML (10ML VL) IV ONE (13:22)
[2024-02-24] MEDS ORDERED: ONDANSETRON 4 MG/2 ML VIAL IVP PRN (14:00)
[2024-02-24] MEDS ORDERED: NALOXONE 0.4 MG/ML 1 ML VIAL IV PRN (14:00)
--- NOTE | 2024-02-24 14:30 | P.HPIM ---
History of Present Illness H&P Date: 02/24/24 History of Presenting Illness: Patient is a pleasant 24-year-old male recently sustained a mildly displaced left femur fracture and underwent open operative fixation of left subtrochanteric femur fracture with long intramedullary reconstruction nail placement on 02/02/2024. He was discharged home on DVT prophylaxis with aspirin 81 mg twice daily and instructed to follow-up outpatient with orthopedic surgeon. Patient reports that he was doing great up until about 4 to 5 days ago when he began noticing pain in his left calf which was soon followed by redness and swelling of his left leg. Patient reports he notified his surgeon and was sent for an outpatient ultrasound and was then instructed to go to the emergency department for findings of an acute DVT. Vital signs revealed blood pressure 109/66, heart rate 77, respiratory rate 18, temp 97.9 F, and SpO2 of 97% on room air. Venous Doppler positive for DVT extending from common femoral vein to proximal calf veins. Labs were completed and reviewed. CBC showing normocytic anemia with hemoglobin of 11.3 otherwise normal findings. Coagulation profile normal findings. BMP was unremarkable. Blood glucose 125. Liver profile unremarkable. Patient was started on high intensity heparin infusion at 18 units/kg/h. He was admitted under our services with consultation to vascular surgery. Patient denies experiencing any fevers, chills, diaphoresis, headache, lighthea dedness, dizziness, chest pain, palpitations, shortness of breath, numbness/tingling/weakness in his extremities or any other complaints at this time. Patient denies nicotine use reports smoking marijuana/vaping marijuana daily and denies any other drug or alcohol use. Patient denies history of DVTs or family history of clotting disorders. Review of systems: Pertinent positives and negatives as discussed in HPI, a complete review of systems was performed and all other systems are negative. Physical exam: Vital signs reviewed and stable. General: Nontoxic, no distress and appears stated age. Derm: Skin warm and dry, normal coloration for ethnicity. Head: Atraumatic, normocephalic and symmetric. Eyes: EOMs intact, no lid lag, and anicteric sclera Mouth: no lip lesions, mucus membranes moist Cardiovascular: regular rate and rhythm with normal S1S2, no murmur, positive posterior tibial pulses bilaterally, and cap refill < 2 seconds. Lungs: Respirations even, regular, and unlabored on room air. Lungs CTA aron aterally, no rhonchi, no rales, no wheezing, and no accessory muscle usage. Abdominal: soft, nontender to palpation, no guarding, no appreciable organomegaly Ext: ROM intact. No gross muscle atrophy, no contractures. Left lower extremity edema extending from mid thigh down to ankle with mild erythema and increased warmth. Neuro: Speech clear, face symmetrical and CN II-XII grossly intact with no noted focal neuro deficits Psych: Alert and oriented to person, place, time, and situation. Appropriate and pleasant affect. Assessment and Plan of Care: Acute left lower extremity DVT extending from common femoral vein to proximal c penitentiary veins Status post open operative fixation of left subtrochanteric femur fracture with long intramedullary reconstruction nail placement on 02/02/2024 Normocytic anemia -Continue high intensity heparin infusion at 18 units/kg/h with close monitoring of PTT for goal therapeutic range of 44 to 79 seconds. -Consult placed to vascular surgery, appreciate recommendations -Order placed for neurovascular checks every 4 hours. -Symptomatic care and pain management with Tylenol 650 mg p.o. every 6 hours as needed for mild to moderate pain and [place] 5-325 mg tablets every 6 hours as needed for moderate to severe pain. -Telemetry monitoring -Morning CBC Data and imaging reviewed: As stated above in HPI The patient is admitted with an anticipated greater than 2 midnight stay for evaluation of large extensive DVT extending from common femoral vein to proximal calf veins CODE STATUS: Full code DVT prophylaxis: Heparin infusion Anticipated discharge date: Pending clinical course and recommendations from vascular surgery team Anticipated discharge place: Home Patient was seen independently by Nurse Practitioner. This document was prepared using Pinger dictation software. Please allow for errors in highway engineering technician while rare they do occur. I reviewed the documentation as provided by the SOCO above, who is the original author of this note. I agree with the documented assessment and plan, with the following changes: none Past Medical History Past Medical History: No Reported History History of Any Multi-Drug Resistant Organisms: None Reported Past Surgical History: Orthopedic Surgery Past Anesthesia/Blood Transfusion Reactions: No Reported Reaction Past Psychological History: No Psychological Hx Reported Smoking Status: Current every day smoker, Vaper Past Alcohol Use History: Rare Past Drug Use History: Marijuana Medications and Allergies Home Medications Medication Instructions Recorded Confirmed Type Apixaban [Eliquis Starter Pack 5 - 10 mg PO DIRECTED 30 Days 02/27/24 Rx (for VTE)] #1 each HYDROcodone/APAP 5-325MG [[place] 1 each PO Q6HR PRN #12 tab 02/27/24 Rx 5-325] Allergies Allergy/AdvReac Type Severity Reaction Status Date / Time No Known Allergies Allergy Verified 02/24/24 12:48 Physical Exam Vitals: Vital Signs Temp Pulse Resp BP Pulse Ox 02/24/24 11:07 97.9 F 77 18 109/66 97 Intake and Output 02/23/24 02/24/24 02/24/24 22:59 06:59 14:59 Other: Weight 61.235 kg Results CBC & Chem 7: 02/26/24 04:29 02/26/24 04:29 Labs: Abnormal Lab Results - Last 24 Hours (Table) 02/24/24 02/24/24 Range/Units 12:49 12:49 RBC 3.78 L (4.30-5.90) m/uL Hgb 11.3 L (13.0-17.5) gm/dL Hct 34.9 L (39.0-53.0) % Creatinine 0.53 L (0.66-1.25) mg/dL Glucose 125 H (74-99) mg/dL
[2024-02-24] MEDS: SODIUM CHLORIDE 0.9% 1,000 ML IV SCH (14:37)
[2024-02-24] MEDS ORDERED: ACETAMINOPHEN TAB 325 MG TAB PO PRN (15:56)
[2024-02-24] MEDS: NICOTINE 21MG/24HR PATCH TRANSDERM SCH (17:41)
[2024-02-24] MEDS: HYDROcodone/APAP 5-325MG 1 EACH TAB PO PRN (21:32)
[2024-02-24] MEDS: HEPARIN SODIUM 1,000 UN/ML (10ML VL) IV PRN (22:18)
[2024-02-25 10:08] LABS: Basophils # (A) 0.03 X 10*3/uL (0.00-0.10); Basophils % (A) 0.6 %; Eosinophils # (A) 0.27 X 10*3/uL (0.04-0.35); HCT 31.2 % (39.6-50.0); Lymphocytes # (A) 1.48 X 10*3/uL (0.90-5.00); Lymphocytes % (A) 27.2 %; MCH 30.1 pg (27.0-32.0); MCHC 32.1 g/dL (32.0-37.0); Mean Platelet Volume 10.7 FL (9.5-12.2); Monocytes # (A) 0.56 X 10*3/uL (0.20-1.00); Monocytes % (A) 10.3 %; NRBC Per 100 WBC 0 X 10*3/uL (0.00-0.01); Neutrophils # (A) 3.09 X 10*3/uL (1.80-7.70); Neutrophils % (A) 56.5 %; Platelet Count 265 X 10*3/uL (140-440); RBC 3.32 X 10*6/uL (4.40-5.60); RDW 12.4 % (11.5-14.5); WBC 5.45 X 10*3/uL (4.50-10.00)
[2024-02-25 10:29] LABS: ALT 8 U/L (10-49); AST 14 U/L (14-35); Albumin 3.7 g/dL (3.8-4.9); Albumin/Globulin Ratio 1.76 Ratio (1.60-3.17); Alkaline Phosphatase 57 U/L (41-126); BUN/Creat Ratio 9.43 Ratio (12.00-20.00); Blood Urea Nitrogen 6.6 mg/dL (9.0-27.0); Calcium 9.1 mg/dL (8.7-10.3); Carbon Dioxide 27.6 mmol/L (21.6-31.8); Chloride 106 mmol/L (96-109); Globulin 2.1 g/dL (1.6-3.3); Glucose 94 mg/dL (70-110); Potassium 4.5 mmol/L (3.5-5.5); Sodium 142 mmol/L (135-145); Total Bilirubin 0.4 mg/dL (0.3-1.2); Total Protein 5.8 g/dL (6.2-8.2)
--- NOTE | 2024-02-25 14:47 | P.PN ---
Subjective Progress Note Date: 02/25/24 Principal diagnosis: I reviewed the documentation as provided by the SOCO above, who is the original author of this note. I agree with the documented assessment and plan, with the following changes: none Hospital Course: Patient is a pleasant 24-year-old male recently sustained a mildly displaced left femur fracture and underwent open operative fixation of left subtrochanteric femur fracture with long intramedullary reconstruction nail placement on 02/02/2024. He was discharged home on DVT prophylaxis with aspirin 81 mg twice daily and instructed to follow-up outpatient with orthopedic surgeon. Patient reports that he was doing great up until about 4 to 5 days ago when he began noticing pain in his left calf which was soon followed by redness and swelling of his left leg. Patient reports he notified his surgeon and was sent for an outpatient ultrasound and was then instructed to go to the emergency department for findings of an acute DVT. Vital signs revealed blood pressure 109/66, heart rate 77, respiratory rate 18, temp 97.9 F, and SpO2 of 97% on room air. Venous Doppler positive for DVT extending from common femoral vein to proximal calf veins. Labs were completed and reviewed. CBC showing normocytic anemia with hemoglobin of 11.3 otherwise normal findings. Coagulation profile normal findings. BMP was unremarkable. Blood glucose 125. Liver profile unremarkable. Patient was started on high intensity heparin infusion at 18 units/kg/h. He was admitted under our services with consultation to vascular surgery. Physical exam: Vital signs reviewed and stable. General: Nontoxic, no distress and appears stated age. Derm: Skin warm and dry, normal coloration for ethnicity. Head: Atraumatic, normocephalic and symmetric. Eyes: EOMs intact, no lid lag, and anicteric sclera Mouth: no lip lesions, mucus membranes moist Cardiovascular: regular rate and rhythm with normal S1S2, no murmur, positive posterior tibial pulses bilaterally, and cap refill < 2 seconds. Lungs: Respirations even, regular, and unlabored on room air. Lungs CTA bilaterally, no rhonchi, no rales, no wheezing, and no accessory muscle usage. Abdominal: soft, nontender to palpation, no guarding, no appreciable organomegaly Ext: ROM intact. No gross muscle atrophy, no contractures. Left lower extremity edema extending from mid thigh down to ankle with mild erythema and increased warmth. Neuro: Speech clear, face symmetrical and CN II-XII grossly intact with no noted focal neuro deficits Psych: Alert and oriented to person, place, time, and situation. Appropriate and pleasant affect. Assessment and Plan of Care: Acute left lower extremity DVT extending from common femoral vein to proximal calf veins Status post open operative fixation of left subtrochanteric femur fracture with long intramedullary reconstruction nail placement on 02/02/2024 Normocytic anemia -Continue high intensity heparin infusion at 18 units/kg/h with close monitoring of PTT for goal therapeutic range of 44 to 79 seconds. -Consult placed to vascular surgery, appreciate recommendations -Continue neurovascular checks every 4 hours. -Symptomatic care and pain management with Tylenol 650 mg p.o. every 6 hours as needed for mild to moderate pain and [place] 5-325 mg tablets every 6 hours as needed for moderate to severe pain. -Telemetry monitoring -Morning CBC Nicotine dependence -Order placed for nicotine patch 21 mg daily. Recommend smoking cessation. Data and imaging reviewed: Morning labs completed and reviewed. CBC showing normocytic anemia with hemoglobin of 10.0. PTT therapeutic at 44.7. BMP unremarkable. Vital signs reviewed. Blood pressure 114/60, heart rate 80, respiratory rate 17, temp 98.0 F, and SpO2 of 100% on room air. CODE STATUS: Full code DVT prophylaxis: Heparin infusion Anticipated discharge date: Pending clinical course and recommendations from vascular surgery team Anticipated discharge place: Home Patient was seen independently by Nurse Practitioner. This document was prepared using Boomr dictation software. Please allow for errors in residential fee appraiser while rare they do occur. Objective - Vital Signs Vital signs: Vital Signs Temp 98 F 02/25/24 02:08 Pulse 51 L 02/25/24 02:08 Resp 17 02/25/24 02:08 BP 118/66 02/25/24 02:08 Pulse Ox 100 02/25/24 02:08 FiO2 Intake & Output 02/24/24 02/25/24 02/25/24 18:59 06:59 18:59 Intake Total 96.443 Output Total 600 Balance -503.557 Weight 61.235 kg Intake: Intake, IV Titration 96.443 Amount Heparin Sod,Pork in 0.45% 96.443 NaCl 25,000 unit In 0.45 % NaCl 1 250ml.bag @ 18 UNITS/KG/HR 11.022 mls/hr IV [id number] Rx#: [id number] Output: Urine 600 Other: # Voids 0 - Labs CBC & Chem 7: 02/26/24 04:29 02/26/24 04:29 Labs: Abnormal Lab Results - Last 24 Hours (Table) 02/24/24 02/24/24 02/24/24 Range/Units 12:49 12:49 18:40 RBC 3.78 L (4.30-5.90) m/uL Hgb 11.3 L (13.0-17.5) gm/dL Hct 34.9 L (39.0-53.0) % APTT 38.6 H (22.0-30.0) sec Creatinine 0.53 L (0.66-1.25) mg/dL Glucose 125 H (74-99) mg/dL 02/25/24 Range/Units 04:13 RBC (4.30-5.90) m/uL Hgb (13.0-17.5) gm/dL Hct (39.0-53.0) % APTT 44.7 H (22.0-30.0) sec Creatinine (0.66-1.25) mg/dL Glucose (74-99) mg/dL
[2024-02-26 10:18] LABS: HCT 31.8 % (39.6-50.0); HGB 10.4 g/dL (13.0-17.0); MCH 30.3 pg (27.0-32.0); MCHC 32.7 g/dL (32.0-37.0); MCV 92.7 FL (80.0-97.0); Mean Platelet Volume 10.6 FL (9.5-12.2); NRBC Per 100 WBC 0 X 10*3/uL (0.00-0.01); Platelet Count 291 X 10*3/uL (140-440); RBC 3.43 X 10*6/uL (4.40-5.60); RDW 12.5 % (11.5-14.5); WBC 5.79 X 10*3/uL (4.50-10.00)
[2024-02-26 10:31] LABS: ALT 8 U/L (10-49); AST 11 U/L (14-35); Albumin 3.8 g/dL (3.8-4.9); Alkaline Phosphatase 58 U/L (41-126); BUN/Creat Ratio 7.17 Ratio (12.00-20.00); Blood Urea Nitrogen 4.3 mg/dL (9.0-27.0); Calcium 8.9 mg/dL (8.7-10.3); Chloride 104 mmol/L (96-109); Globulin 1.9 g/dL (1.6-3.3); Glucose 85 mg/dL (70-110); Magnesium 1.9 mg/dL (1.5-2.4); Potassium 4.1 mmol/L (3.5-5.5); Sodium 142 mmol/L (135-145); Total Bilirubin 0.5 mg/dL (0.3-1.2); Total Protein 5.7 g/dL (6.2-8.2)
--- NOTE | 2024-02-26 12:47 | P.PN ---
Subjective Progress Note Date: 02/26/24 Principal diagnosis: I reviewed the documentation as provided by the SOCO above, who is the original author of this note. I agree with the documented assessment and plan, with the following changes: none Hospital Course: Patient is a pleasant 24-year-old male recently sustained a mildly displaced left femur fracture and underwent open operative fixation of left subtrochanteric femur fracture with long intramedullary reconstruction nail placement on 02/02/2024. He was discharged home on DVT prophylaxis with aspirin 81 mg twice daily and instructed to follow-up outpatient with orthopedic surgeon. Patient reports that he was doing great up until about 4 to 5 days ago when he began noticing pain in his left calf which was soon followed by redness and swelling of his left leg. Patient reports he notified his surgeon and was sent for an outpatient ultrasound and was then instructed to go to the emergency department for findings of an acute DVT. Vital signs revealed blood pressure 109/66, heart rate 77, respiratory rate 18, temp 97.9 F, and SpO2 of 97% on room air. Venous Doppler positive for DVT extending from common femoral vein to proximal calf veins. Labs were completed and reviewed. CBC showing normocytic anemia with hemoglobin of 11.3 otherwise normal findings. Coagulation profile normal findings. BMP was unremarkable. Blood glucose 125. Liver profile unremarkable. Patient was started on high intensity heparin infusion at 18 units/kg/h. He was admitted under our services with consultation to vascular surgery. Physical exam: Vital signs reviewed and stable. General: Nontoxic, no distress and appears stated age. Derm: Skin warm and dry, normal coloration for ethnicity. Head: Atraumatic, normocephalic and symmetric. Eyes: EOMs intact, no lid lag, and anicteric sclera Mouth: no lip lesions, mucus membranes moist Cardiovascular: regular rate and rhythm with normal S1S2, no murmur, positive posterior tibial pulses bilaterally, and cap refill < 2 seconds. Lungs: Respirations even, regular, and unlabored on room air. Lungs CTA bilaterally, no rhonchi, no rales, no wheezing, and no accessory muscle usage. Abdominal: soft, nontender to palpation, no guarding, no appreciable organomegaly Ext: ROM intact. No gross muscle atrophy, no contractures. Left lower extremity edema extending from mid thigh down to ankle with mild erythema and increased warmth. Neuro: Speech clear, face symmetrical and CN II-XII grossly intact with no noted focal neuro deficits Psych: Alert and oriented to person, place, time, and situation. Appropriate and pleasant affect. Assessment and Plan of Care: Acute left lower extremity DVT extending from common femoral vein to proximal calf veins Status post open operative fixation of left subtrochanteric femur fracture with long intramedullary reconstruction nail placement on 02/02/2024 Normocytic anemia -Continue high intensity heparin infusion with close monitoring of PTT for goal therapeutic range of 44 to 79 seconds. PTT is currently subtherapeutic at 37.2 and heparin infusion increased to 22 units/kg/h. -Consult placed to vascular surgery, appreciate recommendations -Continue neurovascular checks every 4 hours. -Symptomatic care and pain management with Tylenol 650 mg p.o. every 6 hours as needed for mild to moderate pain and [place] 5-325 mg tablets every 6 hours as needed for moderate to severe pain. -Telemetry monitoring -Morning CBC Nicotine dependence -Order placed for nicotine patch 21 mg daily. Recommend smoking cessation. Data and imaging reviewed: Morning labs completed and reviewed. CBC showing stable normocytic anemia with hemoglobin of 10.4 otherwise normal findings. PTT is subtherapeutic at 37.2 and heparin infusion increased to 22 units/kg/h. CMP unremarkable. Vital signs reviewed. Blood pressure 97/58, heart rate 79, respiratory rate 18, temp 98.9 F and SpO2 of 96% on room air.. CODE STATUS: Full code DVT prophylaxis: Heparin infusion Anticipated discharge date: Pending clinical course and recommendations from vascular surgery team Anticipated discharge place: Home Patient was seen independently by Nurse Practitioner. This document was prepared using Plurality dictation software. Please allow for errors in bilingual manager while rare they do occur. Objective - Vital Signs Vital signs: Vital Signs Temp 98.9 F 02/26/24 07:19 Pulse 79 02/26/24 07:19 Resp 18 02/26/24 07:19 BP 97/58 02/26/24 07:19 Pulse Ox 96 02/26/24 07:19 FiO2 Intake & Output 02/25/24 02/26/24 02/26/24 18:59 06:59 18:59 Intake Total 153.557 0.408 Output Total 1200 1200 Balance -1046.443 -1199.592 Intake: Intake, IV Titration 153.557 0.408 Amount Heparin Sod,Pork in 0.45% 153.557 0.408 NaCl 25,000 unit In 0.45 % NaCl 1 250ml.bag @ 18 UNITS/KG/HR 11.022 mls/hr IV .[id number] [facility] Rx#: [id number] Output: Urine 1200 1200 Other: # Voids 3 1 - Labs CBC & Chem 7: 02/26/24 04:29 02/26/24 04:29 Labs: Abnormal Lab Results - Last 24 Hours (Table) 02/25/24 02/25/24 02/26/24 Range/Units 04:13 04:13 04:29 RBC 3.32 L (4.40-5.60) X 10*6/uL Hgb 10.0 L (13.0-17.0) g/dL Hct 31.2 L (39.6-50.0) % APTT 37.2 H (22.0-30.0) sec BUN 6.6 L (9.0-27.0) mg/dL BUN/Creatinine Ratio 9.43 L (12.00-20.00) Ratio ALT 8 L (10-49) U/L Total Protein 5.8 L (6.2-8.2) g/dL Albumin 3.7 L (3.8-4.9) g/dL
--- NOTE | 2024-02-27 11:12 | P.GSCN ---
History of Present Illness Consult date: 02/27/24 Reason for Consult: Left lower extremity DVT Requesting physician: Ayan Martinez History of present illness: This is a 24-year-old male who recently sustained a mildly displaced left femur fracture and underwent open operative fixation of left subtrochanteric femur fracture with long intramedullary reconstruction nail placement on 02/02/2024. He was discharged home with aspirin 81 mg twice daily for DVT prophylaxis. He states that he was doing well up into a few days ago where he started having pain in his left calf then had swelling in his foot and complained of pain going up into his thigh. It started swelling and getting red and he became concerned and came to the emergency department. He does have a history of smoking about a half a pack to a pack a day. He had a venous duplex that shows of DVT from common femoral vein to the proximal calf veins. Patient states pain and swelling have improved. He denies any shortness of breath, chest pain, abdominal pain, nausea or vomiting. He was started on a heparin drip and currently still on it. Review of Systems A 14 point review systems was completed all pertinent positives and negatives as stated in the HPI. Past Medical History Past Medical History: No Reported History History of Any Multi-Drug Resistant Organisms: None Reported Past Surgical History: Orthopedic Surgery Past Anesthesia/Blood Transfusion Reactions: No Reported Reaction Past Psychological History: No Psychological Hx Reported Smoking Status: Current every day smoker, Vaper Past Alcohol Use History: Rare Past Drug Use History: Marijuana Medications and Allergies Home Medications Medication Instructions Recorded Confirmed Type No Known Home Medications 02/24/24 02/24/24 History Allergies Allergy/AdvReac Type Severity Reaction Status Date / Time No Known Allergies Allergy Verified 02/24/24 12:48 Surgical - Exam Vital Signs Temp Pulse Resp BP Pulse Ox 97.9 F 77 18 109/66 97 02/24/24 11:07 02/24/24 11:07 02/24/24 11:07 02/24/24 11:07 02/24/24 11:07 General appearance: The patient is alert, oriented, appears in no acute distress. HET: Head is normocephalic and atraumatic. Pupils are equal and reactive. Neck: Supple. Heart: Regular. Lungs: Equal expansion, normal respiratory effort. Abdomen: Soft, nontender, nondistended. Extremities: Normal skin color and turgor. Palpable PT and pedal pulse. No significant swelling of the left lower extremity. Some decreased range of motion of left lower extremity due to recent surgery. Neurological: No focal deficits. Alert and oriented. Results - Labs 02/26/24 04:29 02/26/24 04:29 Abnormal Lab Results - Last 24 Hours (Table) 02/26/24 02/26/24 02/26/24 Range/Units 04:29 04:29 13:59 RBC 3.43 L (4.40-5.60) X 10*6/uL Hgb 10.4 L (13.0-17.0) g/dL Hct 31.8 L (39.6-50.0) % APTT 46.3 H (22.0-30.0) sec BUN 4.3 L (9.0-27.0) mg/dL BUN/Creatinine Ratio 7.17 L (12.00-20.00) Ratio AST 11 L (14-35) U/L ALT 8 L (10-49) U/L Total Protein 5.7 L (6.2-8.2) g/dL 02/27/24 Range/Units 05:41 RBC (4.40-5.60) X 10*6/uL Hgb (13.0-17.0) g/dL Hct (39.6-50.0) % APTT 48.6 H (22.0-30.0) sec BUN (9.0-27.0) mg/dL BUN/Creatinine Ratio (12.00-20.00) Ratio AST (14-35) U/L ALT (10-49) U/L Total Protein (6.2-8.2) g/dL Diabetes panel 02/26/24 Range/Units 04:29 Sodium 142 (135-145) mmol/L Potassium 4.1 (3.5-5.5) mmol/L Chloride 104 (96-109) mmol/L Carbon Dioxide 27.0 (21.6-31.8) mmol/L BUN 4.3 L (9.0-27.0) mg/dL Creatinine 0.6 (0.6-1.5) mg/dL Glucose 85 (70-110) mg/dL Calcium 8.9 (8.7-10.3) mg/dL AST 11 L (14-35) U/L ALT 8 L (10-49) U/L Alkaline Phosphatase 58 (41-126) U/L Total Protein 5.7 L (6.2-8.2) g/dL Albumin 3.8 (3.8-4.9) g/dL Calcium panel 02/26/24 Range/Units 04:29 Calcium 8.9 (8.7-10.3) mg/dL Albumin 3.8 (3.8-4.9) g/dL Pituitary panel 02/26/24 Range/Units 04:29 Sodium 142 (135-145) mmol/L Potassium 4.1 (3.5-5.5) mmol/L Chloride 104 (96-109) mmol/L Carbon Dioxide 27.0 (21.6-31.8) mmol/L BUN 4.3 L (9.0-27.0) mg/dL Creatinine 0.6 (0.6-1.5) mg/dL Glucose 85 (70-110) mg/dL Calcium 8.9 (8.7-10.3) mg/dL Adrenal panel 02/26/24 Range/Units 04:29 Sodium 142 (135-145) mmol/L Potassium 4.1 (3.5-5.5) mmol/L Chloride 104 (96-109) mmol/L Carbon Dioxide 27.0 (21.6-31.8) mmol/L BUN 4.3 L (9.0-27.0) mg/dL Creatinine 0.6 (0.6-1.5) mg/dL Glucose 85 (70-110) mg/dL Calcium 8.9 (8.7-10.3) mg/dL Total Bilirubin 0.5 (0.3-1.2) mg/dL AST 11 L (14-35) U/L ALT 8 L (10-49) U/L Alkaline Phosphatase 58 (41-126) U/L Total Protein 5.7 L (6.2-8.2) g/dL Albumin 3.8 (3.8-4.9) g/dL - Imaging Comments: Lower extremity venous duplex reports left leg positive for DVT from common femoral vein to proximal calf veins Assessment and Plan Assessment: 1. Left lower extremity deep vein thrombosis 2. Recent left lower extremity injury status post surgery 3. Current every day smoker Plan: 1. May discontinue heparin drip and transition to Eliquis 2. There is no indication for any vascular surgical intervention 3. May apply KELLIE hose if swelling returns 4. Recommend smoking cessation Thank you for this consultation, we will sign off at this time. The impression and plan of care has been dictated as directed. I performed a history and examination of this patient, discussed the same with the dictator. I agree with the dictator's note ,documented as a scribe. Any additional findings or plans will be noted.
[2024-02-27] MEDS: Apixaban Initiation Dose--VTE 5 MG TAB PO SCH (13:03)
--- NOTE | 2024-02-27 14:01 | P.DS ---
Providers Date of admission: 02/24/24 14:59 Expected date of discharge: 02/27/24 Attending physician: Tyson Wheat MD Consults: 02/24/24 14:00 Consult Physician Routine Consulting Provider: Zackary Melvin Consult Reason/Comments: lle dvt Do you want consulting provider notified?: Yes Primary care physician: Stated None Hospital Course: Discharge Diagnosis: Acute left lower extremity DVT extending from common femoral vein to proximal calf veins. Status post open operative fixation of left subtrochanteric femur fracture with long intramedullary reconstruction nail placement on 02/02/2024 Normocytic anemia Nicotine dependence Hospital Course: Patient is a pleasant 24-year-old male recently sustained a mildly displaced left femur fracture and underwent open operative fixation of left subtrochanteric femur fracture with long intramedullary reconstruction nail placement on 02/02/2024. He was discharged home on DVT prophylaxis with aspirin 81 mg twice daily and instructed to follow-up outpatient with orthopedic surgeon. Patient reports that he was doing great up until about 4 to 5 days ago when he began noticing pain in his left calf which was soon followed by redness and swelling of his left leg. Patient reports he notified his surgeon and was sent for an outpatient ultrasound and was then instructed to go to the emergency department for findings of an acute DVT. Vital signs revealed blood pressure 109/66, heart rate 77, respiratory rate 18, temp 97.9 F, and SpO2 of 97% on room air. Venous Doppler positive for DVT extending from common femoral vein to proximal calf veins. Labs were completed and reviewed. CBC showing normocytic anemia with hemoglobin of 11.3 otherwise normal findings. Coagulation profile normal findings. BMP was unremarkable. Blood glucose 125. Liver profile unremarkable. Patient was started on high intensity heparin infusion at 18 units/kg/h. He was admitted under our services with consultation to vascular surgery. Evaluated by vascular surgery team, recommending no surgical intervention necessary at this time. Patient was highly encouraged to stop smoking. He was discharged home on Eliquis 10 mg twice daily x 7 days followed by 5 mg twice daily. Patient to follow-up outpatient with PCP in 1 to 2 days and with orthopedic surgeon as previously scheduled. Physical exam: Vital signs reviewed and stable. General: Nontoxic, no distress and appears stated age. Derm: Skin warm and dry, normal coloration for ethnicity. Head: Atraumatic, normocephalic and symmetric. Eyes: EOMs intact, no lid lag, and anicteric sclera Mouth: no lip lesions, mucus membranes moist Cardiovascular: regular rate and rhythm with normal S1S2, no murmur, positive posterior tibial pulses bilaterally, and cap refill < 2 seconds. Lungs: Respirations even, regular, and unlabored on room air. Lungs CTA bilaterally, no rhonchi, no rales, no wheezing, and no accessory muscle usage. Abdominal: soft, nontender to palpation, no guarding, no appreciable organomegaly Ext: ROM intact. No gross muscle atrophy, no contractures. Left lower extremity edema extending from mid thigh down to ankle with mild erythema and increased warmth. Neuro: Speech clear, face symmetrical and CN II-XII grossly intact with no noted focal neuro deficits Psych: Alert and oriented to person, place, time, and situation. Appropriate and pleasant affect. A total of 33 minutes of time were spent preparing this complex discharge summary. Pt was discharged on 02/27/2024 at 1:54 PM. Patient was seen independently by Nurse Practitioner. This document was prepared using [employer] dictation software. Please allow for errors in subcontracts manager while rare they do occur. I reviewed the documentation as provided by the [employer] above, who is the original author of this note. I agree with the documented assessment and plan, with the following changes: none Patient Condition at Discharge: Stable Plan - Discharge Summary Discharge Rx Participant: No New Discharge Prescriptions: New Apixaban [Eliquis Starter Pack (for VTE)] 5 - 10 mg PO DIRECTED 30 Days #1 each HYDROcodone/APAP 5-325MG [[place] 5-325] 1 each PO Q6HR PRN #12 tab PRN Reason: Pain Discharge Medication List Apixaban [Eliquis Starter Pack (for VTE)] 5 - 10 mg PO DIRECTED 30 Days #1 each 02/27/24 [Rx] HYDROcodone/APAP 5-325MG [[place] 5-325] 1 each PO Q6HR PRN #12 tab 02/27/24 [Rx] Follow up Appointment(s)/Referral(s): Sin Chacon MD [REFERRING] - 1 Week (Please schedule appointment with residency clinic for follow up after discharge and to establish care with PCP.) Edouard Savage MD [Medical Doctor] - 08/26/24 10:10 am Patient Instructions/Handouts: Deep Vein Thrombosis (GEN) Activity/Diet/Wound Care/Special Instructions: Jose filled with free month coupon and is at [facility]. Discharge Disposition: HOME SELF-CARE
[2024-02-27 14:10] VITALS: BP 95/61; PULSE 80; RESP 14; TEMP 98.5
== END 2024-02-27 15:43 | disposition home or self-care (01) | DRG 301 ==
LOC: EC 10:57 → 4SSUR 14:59
PROVIDERS: ADMIT Family Medicine; ATTEND Family Medicine
DX: I82.412 Acute embolism and thrombosis of left femoral vein (principal); I82.4Z2 Acute embolism and thrombosis of unspecified deep veins of left distal lower extremity; S72.22XD Displaced subtrochanteric fracture of left femur, subsequent encounter for closed fracture with routine healing; D64.9 Anemia, unspecified; F17.290 Nicotine dependence, other tobacco product, uncomplicated; Z79.01 Long term (current) use of anticoagulants; Z79.82 Long term (current) use of aspirin; Z71.6 Tobacco abuse counseling
CPT/HCPCS: 36415; 80053; 83735; 85025; 85027; 85610; 85730; 96365; 96366; 99285

== ENCOUNTER → 2024-02-24 | Outpatient (CLI) | payer OTHER ==
--- NOTE | 2024-02-24 11:02 | US ---
EXAMINATION TYPE: US venous doppler duplex LE LT DATE OF EXAM: 02/24/2024 10:35 AM COMPARISON: NONE CLINICAL INDICATION: Male, 24 years old with history of I80.9 PHLEBITIS AND THROMBOPHLEBITIS OF UNSPE CIFIE; Pain with an increase in swelling x 4 days; Surgery February 01 to repair femur SIDE PERFORMED: Left TECHNIQUE: The lower extremity deep venous system is examined utilizing real time linear array sonog toya with graded compression, doppler sonography and color-flow sonography. VESSELS IMAGED: Common Femoral Vein Deep Femoral Vein Greater Saphenous Vein * Femoral Vein Popliteal Vein Small Saphenous Vein * Proximal Calf Veins (* superficial vessels) Right Leg: NA Left Leg: Positive for DVT from CFV to Proximal calf veins IMPRESSION: Findings are positive for DVT as noted left lower extremity
== END | disposition home or self-care (01) ==
LOC: RADUSWWP 10:18
PROVIDERS: ATTEND Orthopaedic Surgery
DX: I82.402 Acute embolism and thrombosis of unspecified deep veins of left lower extremity (principal); S72.22XD Displaced subtrochanteric fracture of left femur, subsequent encounter for closed fracture with routine healing; Z48.89 Encounter for other specified surgical aftercare